=== PATIENT | female | born 1995 | race Hispanic/Latino ===

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

== ENCOUNTER 2017-01-02 17:39 | Outpatient (CLI) | payer OTHER ==
[2017-01-04 22:28] LABS: Chlamydia by PCR Not Detected (NotDetected); GC by PCR Not Detected (NotDetected)
== END 2017-01-02 17:40 | disposition home or self-care (01) ==
LOC: MADLAB 17:39
PROVIDERS: ATTEND Family Medicine
DX: R10.2 Pelvic and perineal pain (principal)
CPT/HCPCS: 87480; 87491; 87510; 87591; 87660

== ENCOUNTER 2017-02-14 22:54 | Emergency (ER) | payer OTHER ==
[2017-02-14] MEDS ORDERED: Albuterol Sulfate 1.25 MG/3 ML NEB ONE (23:21)
[2017-02-14] MEDS ORDERED: HYDROcodone/Acetaminophen 5/325 mg Tablet ONE (23:24)
[2017-02-14] MEDS ORDERED: Benzonatate 100 MG CAP ONE (23:24)
[2017-02-14] MEDS ORDERED: Dexamethasone 4 MG TAB ONE (23:24)
== END 2017-02-14 23:33 | disposition home or self-care (01) ==
LOC: MADERS 22:54
DX: J45.909 Unspecified asthma, uncomplicated (principal); E11.9 Type 2 diabetes mellitus without complications; E03.9 Hypothyroidism, unspecified; F41.9 Anxiety disorder, unspecified; F20.9 Schizophrenia, unspecified; F31.9 Bipolar disorder, unspecified; F17.210 Nicotine dependence, cigarettes, uncomplicated; Z79.899 Other long term (current) drug therapy; Z79.84 Long term (current) use of oral hypoglycemic drugs
CPT/HCPCS: J8540

== ENCOUNTER 2017-02-24 00:18 | Emergency (ER) | payer BC, OTHER ==
[2017-02-24] MEDS ORDERED: Famotidine In NaCl 20 mg/50 ml Premix Bag ONE (00:47)
[2017-02-24] MEDS ORDERED: Ondansetron HCl/PF 4 MG/2 ML Vial ONE (00:47)
[2017-02-24 01:15] LABS: Alcohol 74 mg/dL (Less than 10); Anion Gap 17 mmol/L (10-20); BUN (Urea Nitrogen) 12 mg/dL (8.4-21.0); Calc. Creatinine Clearance 0 mL/min (70-130); Calcium 8.9 mg/dL (7.8-10.44); Carbon Dioxide 21 mmol/L (22-29); Chloride 104 mmol/L (98-107); Estimated GFR-MDRD Greater than 90; Glucose 136 mg/dL (70-105); Potassium 3.3 mmol/L (3.5-5.1); Sodium 139 mmol/L (136-145)
[2017-02-24 01:17] LABS: Hemoglobin 13.5 g/dL (12.0-16.0); Manual Diff?? YES; Mean Corpuscular HGB CONC 33.2 g/dL (32.0-36.0); Mean Corpuscular Hemoglobin 28.3 pg (25.0-35.0); Mean Corpuscular Volume 85.2 fl (77.0-87.0); Mean Platelet Volume 8.8 fL (7.4-10.4); Platelet Count 315 thou/uL (130-400); RBC Distribution Width 13.5 % (11.5-14.5); Red Blood Cell (RBC) Count 4.78 mill/uL (4.00-5.20); White Blood Cell (WBC) Count 18.2 thou/uL (4.8-10.8)
[2017-02-24 01:18] LABS: #Basophils 0.3 thou/uL (0.0-0.2); #Eosinphils 0.4 thou/uL (0.0-0.7); #Monocytes 0.9 thou/uL (0.11-0.59); #Neutrophils 12.9 thou/uL (1.40-6.50); %Basophils 1.5 % (0.0-1.0); %Lymphocytes 20.6 % (28.0-48.0); %Neutrophils 70.9 % (31.0-61.0); Acetaminophen Less than 6.0 mcg/mL (10.0-30.0); Alcohol 72 mg/dL (Less than 10); Band 0 % (5-11); Lymphocytes 28 % (28-48); MDiff Complete? YES; Monocytes 5 % (0-4); Neutrophil 67 % (31-61); Salicylate Less than 8.0 mg/dL (15.0-30.0)
[2017-02-24 01:19] LABS: Anisocytosis SLIGHT = 6-15 cells (100X) (0-5/hpf); Hypochromia SLIGHT = 6-15 cells (100X) (0-5/hpf); PLT Morphology Comment Appears Adequate; Poikilocytosis SLIGHT = 6-15 cells (100X) (0-5/hpf); RBC Morphology ABNORMAL
[2017-02-24 01:21] LABS: CKMB 1.5 ng/mL (0-6.6); Troponin I 0.033 ng/mL (< 0.028)
[2017-02-24 01:40] LABS: Amphetamine Not Detected (NotDetected); Barbiturates Screen Not Detected (NotDetected); Benzodiazepine Screen Not Detected (NotDetected); Cocaine Metabolite Screen Not Detected (NotDetected); Medtox Control Line Valid? VALID (VALID); Methadone Not Detected (NotDetected); Methamphetamine Not Detected (NotDetected); Opiate Screen Not Detected (NotDetected); Oxycodone Screen Not Detected (NotDetected); Phencyclidine (PCP) Not Detected (NotDetected); THC/Cannabinoid Screen Detected (NotDetected); Tricyclic Screen Not Detected (NotDetected)
== END 2017-02-24 02:35 | disposition home or self-care (01) ==
LOC: MADERS 00:18
DX: F10.10 Alcohol abuse, uncomplicated (principal); F19.10 Other psychoactive substance abuse, uncomplicated; J45.909 Unspecified asthma, uncomplicated; E11.9 Type 2 diabetes mellitus without complications; E03.9 Hypothyroidism, unspecified; F41.9 Anxiety disorder, unspecified; F20.9 Schizophrenia, unspecified; F31.9 Bipolar disorder, unspecified; F17.210 Nicotine dependence, cigarettes, uncomplicated; Z79.899 Other long term (current) drug therapy
CPT/HCPCS: 36415; 80048; 80306; 80307; 82553; 84484; 85025; 85379; 93005; 96374; 96375; J2405

== ENCOUNTER 2017-04-19 14:00 | Emergency (ER) | payer BC, OTHER ==
[~2017-04-19 14:00] MED LIST: Iopamidol 370 76% 125 ML VIAL FS ONE
[2017-04-19 15:14] LABS: #Basophils 0.1 thou/uL (0.0-0.2); #Eosinphils 0.2 thou/uL (0.0-0.7); #Lymphocytes 2.2 thou/uL (1.20-3.40); #Monocytes 0.8 thou/uL (0.11-0.59); #Neutrophils 6.7 thou/uL (1.40-6.50); %Basophils 1.2 % (0.0-1.0); %Eosinophils 1.5 % (0.0-10.0); %Lymphocytes 22.1 % (28.0-48.0); %Monocytes 7.8 % (0.0-4.0); %Neutrophils 67.4 % (31.0-61.0); Hemoglobin 13.4 g/dL (12.0-16.0); Mean Corpuscular HGB CONC 32.4 g/dL (32.0-36.0); Mean Corpuscular Hemoglobin 28.4 pg (25.0-35.0); Mean Corpuscular Volume 87.8 fl (77.0-87.0); Mean Platelet Volume 9.2 fL (7.4-10.4); Platelet Count 277 thou/uL (130-400); RBC Distribution Width 15.9 % (11.5-14.5); Red Blood Cell (RBC) Count 4.73 mill/uL (4.00-5.20)
[2017-04-19 15:33] LABS: Anion Gap 15 mmol/L (10-20); BUN (Urea Nitrogen) 11 mg/dL (8.4-21.0); Calc. Creatinine Clearance 0 mL/min (70-130); Calcium 9.3 mg/dL (7.8-10.44); Carbon Dioxide 23 mmol/L (22-29); Chloride 104 mmol/L (98-107); Estimated GFR-MDRD Greater than 90; Glucose 97 mg/dL (70-105); Potassium 3.8 mmol/L (3.5-5.1); Sodium 138 mmol/L (136-145)
[2017-04-19 15:40] LABS: Pregnancy Test - Urine (BHCG) Negative (Negative); Pregu Control Background? CLEAR/WHITE (CLR/WHITE); Pregu Control Bar Appear? YES (CONTROL BAR)
--- NOTE | 2017-04-19 16:43 | CT ---
CT OF NECK SOFT TISSUES WITH AND WITHOUT CONTRAST 04/19/17 CLINICAL HISTORY: Right neck lump. Family history of thyroid cancer. FINDINGS: There is asymmetric enlargement of the right submandibular gland with overlying cellulitis, thickenin g of the right platysma and adenopathy, regionally. There is heterogeneous enhancement of the enlarge d right submandibular gland. There is no drainable abscess. No discrete sialolithiasis. There is no evidence of mass within the aerodigestive tract. There is mild prominence of the lingual tonsils. Thy roid gland is somewhat diminutive in volume, and heterogeneous where visualized, limited in assessmen t. The bilateral parotid glands are grossly unremarkable. Osseous structures are intact. IMPRESSION: Findings consistent with right side sialadenitis involving the right submandibular gland. There is ov erlying cellulitis, associated, likely reactive adenopathy, and reactive thickening of the right plat ysma. There is no drainable abscess. Recommend appropriate clinical management and followup and as ne cessary imaging followup may be obtained. There is no obstructing sialolithiasis or sialodocholithiasis evident. POS: [facility]
[2017-04-19] MEDS ORDERED: Clindamycin 150 MG CAP ONE ×2 (18:30→18:31)
[2017-04-19] MEDS ORDERED: Clindamycin/D5W 900 mg/50 ml Premix Bag ONE (18:38)
== END 2017-04-19 17:50 | disposition home or self-care (01) ==
LOC: MADERS 14:00
DX: K11.20 Sialoadenitis, unspecified (principal); F17.210 Nicotine dependence, cigarettes, uncomplicated; F12.10 Cannabis abuse, uncomplicated; F15.10 Other stimulant abuse, uncomplicated; F14.10 Cocaine abuse, uncomplicated; F31.9 Bipolar disorder, unspecified; J45.909 Unspecified asthma, uncomplicated; E11.9 Type 2 diabetes mellitus without complications; E03.9 Hypothyroidism, unspecified; I25.2 Old myocardial infarction; E34.9 Endocrine disorder, unspecified; Z79.899 Other long term (current) drug therapy
CPT/HCPCS: 70492; 80048; 81025; 84436; 84443; 85025; 96374; J3490

== ENCOUNTER 2017-06-30 23:16 | Emergency (ER) | payer BC, MEDICAID, OTHER ==
[2017-07-01 00:15] LABS: Bilirubin Negative (Negative); Blood, Urine Negative (Negative); Clarity Clear (Clear); Glucose, Urine (Dipstick) Negative (Negative); Leukocyte Negative (Negative); Nitrite Negative (Negative); Protein, Urine (Dipstick) Negative (Neg-Trace); Urobilinogen 0.2 mg/dL (0.2-1.0)
[2017-07-01 00:17] LABS: Pregnancy Test - Urine (BHCG) Negative (Negative); Pregu Control Background? CLEAR/WHITE (CLR/WHITE); Pregu Control Bar Appear? YES (CONTROL BAR)
[2017-07-01 00:38] LABS: #Basophils 0.2 thou/uL (0.0-0.2); #Eosinphils 0.4 thou/uL (0.0-0.7); #Lymphocytes 3.3 thou/uL (1.20-3.40); %Basophils 1.1 % (0.0-1.0); %Eosinophils 2.7 % (0.0-10.0); %Lymphocytes 22.3 % (28.0-48.0); %Monocytes 6.5 % (0.0-4.0); %Neutrophils 67.3 % (31.0-61.0); Hemoglobin 12.1 g/dL (12.0-16.0); Mean Corpuscular HGB CONC 33.6 g/dL (32.0-36.0); Mean Corpuscular Hemoglobin 29.5 pg (25.0-35.0); Mean Corpuscular Volume 87.6 fl (77.0-87.0); Mean Platelet Volume 9.7 fL (7.4-10.4); Platelet Count 279 thou/uL (130-400); RBC Distribution Width 13.3 % (11.5-14.5); Red Blood Cell (RBC) Count 4.11 mill/uL (4.00-5.20); White Blood Cell (WBC) Count 14.9 thou/uL (4.8-10.8)
[2017-07-01 00:53] LABS: Anion Gap 16 mmol/L (10-20); BUN (Urea Nitrogen) 11 mg/dL (8.4-21.0); Calc. Creatinine Clearance 0 mL/min (70-130); Carbon Dioxide 21 mmol/L (22-29); Chloride 104 mmol/L (98-107); Estimated GFR-MDRD Greater than 90; Glucose 108 mg/dL (70-105); Magnesium 1.8 mg/dL (1.7-2.2); Sodium 137 mmol/L (136-145)
--- NOTE | 2017-07-01 07:34 | RAD ---
CHEST 1 VIEW: COMPARISON: 06/20/17. HISTORY: Dyspnea. FINDINGS: Normal cardiac silhouette. Pulmonary vessels and hilum are normal. Costophrenic angles are clear. No masses or consolidation. No pneumothorax or osseous abnormalities. IMPRESSION: No acute cardiopulmonary process. POS: [facility]
== END 2017-07-01 01:20 | disposition home or self-care (01) ==
LOC: MADERS 23:16
DX: R06.02 Shortness of breath (principal); R53.81 Other malaise; I10 Essential (primary) hypertension; E11.9 Type 2 diabetes mellitus without complications; E03.9 Hypothyroidism, unspecified; F41.9 Anxiety disorder, unspecified; F31.9 Bipolar disorder, unspecified; Z79.899 Other long term (current) drug therapy
CPT/HCPCS: 36415; 71045; 80048; 81003; 81025; 83735; 84443; 85025

== ENCOUNTER 2017-07-27 23:29 | Emergency (ER) | payer OTHER ==
[2017-07-28 00:04] LABS: Bilirubin Negative (Negative); Blood, Urine Negative (Negative); Clarity Clear (Clear); Glucose, Urine (Dipstick) Negative (Negative); Leukocyte Negative (Negative); Nitrite Negative (Negative); Protein, Urine (Dipstick) Trace mg/dL (Neg-Trace); Urobilinogen 0.2 mg/dL (0.2-1.0)
[2017-07-28 00:06] LABS: Pregnancy Test - Urine (BHCG) Negative (Negative); Pregu Control Background? CLEAR/WHITE (CLR/WHITE); Pregu Control Bar Appear? YES (CONTROL BAR)
[2017-07-28] MEDS ORDERED: HYDROcodone/Acetaminophen 5/325 mg Tablet ONE (00:59)
[2017-07-28] MEDS ORDERED: Benzonatate 100 MG CAP ONE (01:00)
== END 2017-07-28 01:17 | disposition short-term general hospital (02) ==
LOC: MADERS 23:29
DX: M54.5 Low back pain (principal); I10 Essential (primary) hypertension; J45.909 Unspecified asthma, uncomplicated; E11.9 Type 2 diabetes mellitus without complications; E03.9 Hypothyroidism, unspecified; I25.2 Old myocardial infarction; F41.9 Anxiety disorder, unspecified; F20.9 Schizophrenia, unspecified; F31.9 Bipolar disorder, unspecified; Z79.899 Other long term (current) drug therapy; Z79.51 Long term (current) use of inhaled steroids
CPT/HCPCS: 81003; 81025; 99284

== ENCOUNTER 2017-09-03 10:03 | Outpatient (CLI) | payer BC, OTHER ==
--- NOTE | 2017-09-03 11:34 | ULT ---
BILATERAL RENAL ULTRASOUND: Date: 09/03/17 COMPARISON: None. HISTORY: Urinary retention along with urinary incontinence. TECHNIQUE: Multiplanar Villatoro scale sonographic imaging of the kidneys and urinary bladder obtained. FINDINGS: The right kidney measures 12.7 x 4.4 x 6.0 cm and demonstrates no stone, hydronephrosis, or mass lesi on. The left kidney measures 10.7 x 4.7 x 5.1 cm and demonstrates no stone, hydronephrosis, or mass lesio n. Urinary bladder is grossly unremarkable, with pre-void volume of approximately 16 mL and post-void vo lume of 15 mL. IMPRESSION: Unremarkable renal ultrasound. Pre-void urinary bladder and post-void urinary bladder volume is essen tially the same, in the 15-16 mL range. A more accurate representation for post-void residua could be obtained if the patient's urinary bladder was full on pre-void imaging. POS: [facility]
== END 2017-09-03 10:04 | disposition home or self-care (01) ==
LOC: MADULT 10:03
PROVIDERS: ATTEND Family Medicine
DX: R32 Unspecified urinary incontinence (principal); R39.11 Hesitancy of micturition
CPT/HCPCS: 76770

== ENCOUNTER 2018-02-26 15:27 | Emergency (ER) | payer BC, OTHER ==
[2018-02-26] MEDS ORDERED: predniSONE 20 MG TAB ONE (15:52)
== END 2018-02-26 18:00 | disposition home or self-care (01) ==
LOC: MADERS 15:27
DX: J45.901 Unspecified asthma with (acute) exacerbation (principal); I10 Essential (primary) hypertension; E11.9 Type 2 diabetes mellitus without complications; E03.9 Hypothyroidism, unspecified; F41.9 Anxiety disorder, unspecified; F31.9 Bipolar disorder, unspecified; F17.210 Nicotine dependence, cigarettes, uncomplicated
CPT/HCPCS: 94640; J7506; J7620

== ENCOUNTER 2018-07-29 23:15 | Emergency (ER) | payer BC, MEDICAID ==
[2018-07-29] MEDS ORDERED: Benzonatate 100 MG CAP ONE (23:42)
[2018-07-29] MEDS ORDERED: HYDROcodone/Acetaminophen 10/325 mg Tablet ONE (23:42)
--- NOTE | 2018-07-29 23:49 | RAD ---
EXAM: CHEST TWO VIEWS: 07/29/18 HISTORY: Cough. COMPARISON: 01/12/14. FINDINGS: There is some very subtle ground glass opacity changes in the left perihilar region. This could repre sent some very minimal or early infiltrate/pneumonia. Heart size is within normal limits. No pleural effusion. IMPRESSION: Probable minimal/early left perihilar pneumonia. POS: [facility]
[2018-07-29] MEDS ORDERED: cefTRIAXone\\ROCEPHIN 1 GM VIAL ONE (23:53)
[2018-07-29] MEDS ORDERED: Dexamethasone 4 MG TAB ONE (23:53)
[2018-07-29] MEDS ORDERED: Amoxicillin/Potassium Clav 875 MG TAB ONE (23:54)
== END 2018-07-30 00:26 | disposition home or self-care (01) ==
LOC: MADERS 23:15
DX: J18.9 Pneumonia, unspecified organism (principal); J45.901 Unspecified asthma with (acute) exacerbation; E11.9 Type 2 diabetes mellitus without complications; I10 Essential (primary) hypertension; E03.9 Hypothyroidism, unspecified; F41.9 Anxiety disorder, unspecified; F20.9 Schizophrenia, unspecified; F31.9 Bipolar disorder, unspecified; F17.210 Nicotine dependence, cigarettes, uncomplicated; Z79.899 Other long term (current) drug therapy; Z79.51 Long term (current) use of inhaled steroids
CPT/HCPCS: 71046; 96372; J0696; J7620; J8540

== ENCOUNTER 2018-09-14 21:43 | Emergency (ER) | payer BC, OTHER ==
[2018-09-14] MEDS ORDERED: Ibuprofen 800 MG TAB ONE (22:37)
== END 2018-09-14 23:45 | disposition home or self-care (01) ==
LOC: MADERS 21:43
DX: S10.0XXA Contusion of throat, initial encounter (principal); E11.9 Type 2 diabetes mellitus without complications; I10 Essential (primary) hypertension; J45.909 Unspecified asthma, uncomplicated; E03.9 Hypothyroidism, unspecified; F41.9 Anxiety disorder, unspecified; F20.9 Schizophrenia, unspecified; F31.9 Bipolar disorder, unspecified; F17.210 Nicotine dependence, cigarettes, uncomplicated; Z79.899 Other long term (current) drug therapy; Z79.51 Long term (current) use of inhaled steroids; Y07.9 Unspecified perpetrator of maltreatment and neglect
CPT/HCPCS: 99284

== ENCOUNTER 2020-04-12 05:05 | Emergency (ER) | payer OTHER ==
[2020-04-12 05:47] LABS: #Basophils 0.2 thou/uL (0.0-0.2); #Eosinphils 0.2 thou/uL (0.0-0.7); #Lymphocytes 2.7 thou/uL (1.20-3.40); #Monocytes 0.7 thou/uL (0.11-0.59); #Neutrophils 7.6 thou/uL (1.40-6.50); %Basophils 1.8 % (0.0-1.0); %Eosinophils 1.9 % (0.0-10.0); %Lymphocytes 23.3 % (21.0-51.0); %Monocytes 6.4 % (0.0-10.0); %Neutrophils 66.7 % (42.0-75.0); Hemoglobin 12.8 g/dL (12.0-16.0); Mean Corpuscular HGB CONC 31.8 g/dL (32.0-36.0); Mean Corpuscular Hemoglobin 28.9 pg (27.0-31.0); Mean Corpuscular Volume 90.9 fL (78.0-98.0); Platelet Count 217 thou/uL (130-400); RBC Distribution Width 13.8 % (11.5-14.5); Red Blood Cell (RBC) Count 4.45 mill/uL (4.20-5.40); White Blood Cell (WBC) Count 11.4 thou/uL (4.8-10.8)
[2020-04-12 05:56] LABS: Bilirubin Negative (Negative); Blood, Urine Trace (Negative); Clarity Clear (Clear); Glucose, Urine (Dipstick) Negative (Negative); Ketone, Urine Negative (Negative); Leukocyte Negative (Negative); Nitrite Negative (Negative); Protein, Urine (Dipstick) Negative (Neg-Trace); Specific Gravity, Urine 1.025 (1.005-1.030); Urobilinogen 0.2 mg/dL (Less than 2)
[2020-04-12 06:04] LABS: ALT (SGPT) 23 U/L (8-55); AST (SGOT) 15 U/L (5-34); Albumin 3.7 g/dL (3.5-5.0); Alkaline Phosphatase 92 U/L (40-110); Anion Gap 15 mmol/L (10-20); BUN (Urea Nitrogen) 8 mg/dL (7.0-18.7); Bacteria/HPF Rare-Few HPF (None Seen); Bilirubin, Total 0.2 mg/dL (0.2-1.2); CK (CPK) 142 U/L (29-168); Calc. Creatinine Clearance 0 mL/min (70-130); Calcium 8.2 mg/dL (7.8-10.44); Carbon Dioxide 23 mmol/L (22-29); Chloride 104 mmol/L (98-107); Globulin 3.1 g/dL (2.4-3.5); Glucose 143 mg/dL (70-105); Potassium 3.7 mmol/L (3.5-5.1); Protein, Total 6.8 g/dL (6.0-8.3); RBC/HPF 0-3 HPF (0-3); Sodium 138 mmol/L (136-145); Squamous Epithelial 0-3 HPF (0-3); WBC/HPF 0-3 HPF (0-3)
[2020-04-12 06:05] LABS: Amphetamine Not Detected (NotDetected); Barbiturates Screen Not Detected (NotDetected); Benzodiazepine Screen Not Detected (NotDetected); Cocaine Metabolite Screen Not Detected (NotDetected); Medtox Control Line Valid? VALID (VALID); Methadone Not Detected (NotDetected); Methamphetamine Not Detected (NotDetected); Opiate Screen Not Detected (NotDetected); Oxycodone Screen Not Detected (NotDetected); Phencyclidine (PCP) Not Detected (NotDetected); THC/Cannabinoid Screen Detected (NotDetected); Tricyclic Screen Not Detected (NotDetected)
[2020-04-12 06:15] LABS: CKMB 1.7 ng/mL (0-6.6)
[2020-04-12] MEDS ORDERED: Aspirin Chewable 81 MG TAB ONE ×2 (06:55→06:56)
[2020-04-12] MEDS ORDERED: Nitroglycerin 0.4 MG TAB 1 EACH ONE (06:55)
[2020-04-12] MEDS ORDERED: Metoprolol Tartrate 50 MG TAB ONE (06:57)
[2020-04-12] MEDS ORDERED: Acetaminophen 650 MG Suppository ONE (07:12)
--- NOTE | 2020-04-12 07:48 | RAD ---
Chest one view HISTORY: Chest pain. COMPARISON: 07/29/2018. FINDINGS: Cardiac silhouette is magnified and enlarged. Pulmonary vasculature are unremarkable. Mediastinum is midline. No lobar consolidation or evidence of pneumothorax. Extensive overlying artif act. IMPRESSION : Cardiomegaly stable. No acute abnormalities are demonstrated.
[2020-04-12 18:08] LABS: SARS-CoV-2 MS2 Positive; SARS-CoV-2 N Gene Negative; SARS-CoV-2 S Gene Negative; SARS-CoV-2 by NAA Not Detected (NotDetected); SARS-CoV-2 orf1ab Negative
== END 2020-04-12 07:53 | disposition home or self-care (01) ==
LOC: MADERS 05:05
DX: B34.9 Viral infection, unspecified (principal); F12.10 Cannabis abuse, uncomplicated; I10 Essential (primary) hypertension; R07.2 Precordial pain; Z20.828 Contact with and (suspected) exposure to other viral communicable diseases; E11.9 Type 2 diabetes mellitus without complications; E03.9 Hypothyroidism, unspecified; F17.210 Nicotine dependence, cigarettes, uncomplicated; Z79.899 Other long term (current) drug therapy
CPT/HCPCS: 71045; 80053; 80306; 81003; 81015; 82550; 82553; 83605; 83880; 84484; 85025; 85379; 87635; 93005; 94760; 99406; U0003

== ENCOUNTER 2022-03-14 16:30 | Emergency (ER) | payer OTHER ==
[2022-03-14 18:20] LABS: ALT (SGPT) 21 U/L (8-55); AST (SGOT) 25 U/L (5-34); Albumin 3.9 g/dL (3.5-5.0); Alkaline Phosphatase 91 U/L (40-110); Anion Gap 15 mmol/L (10-20); BUN (Urea Nitrogen) 11 mg/dL (7.0-18.7); Bilirubin, Total 0.2 mg/dL (0.2-1.2); Calc. Creatinine Clearance 0 mL/min (70-130); Calcium 9.4 mg/dL (7.8-10.44); Carbon Dioxide 22 mmol/L (22-29); Chloride 106 mmol/L (98-107); Estimated GFR 110; Globulin 4.2 g/dL (2.4-3.5); Glucose 99 mg/dL (70-105); Potassium 3.7 mmol/L (3.5-5.1); Protein, Total 8.1 g/dL (6.0-8.3); Sodium 139 mmol/L (136-145)
[2022-03-14] MEDS ORDERED: Albuterol Sulfate 2.5 mg/0.5 ml Neb ONE (18:21)
[2022-03-14] MEDS ORDERED: Dexamethasone 4 MG TAB ONE (18:21)
[2022-03-14 18:27] LABS: Hemoglobin 14.6 g/dL (12.0-16.0); Mean Corpuscular HGB CONC 32.6 g/dL (32.0-36.0); Mean Corpuscular Hemoglobin 30.1 pg (27.0-31.0); Mean Corpuscular Volume 92.3 fl (78.0-98.0); Mean Platelet Volume 9.4 fL (7.4-10.4); Platelet Count 208 10x3/uL (130-400); RBC Distribution Width 11.8 % (11.5-14.5); Red Blood Cell (RBC) Count 4.84 mill/uL (4.20-5.40); White Blood Cell (WBC) Count 6.9 10x3/uL (4.8-10.8)
[2022-03-14 18:28] LABS: Band 5 % (5-11); Eosinophils 1 % (0-10); Lymphocytes 10 % (21-51); MDiff Complete? YES; Monocytes 6 % (0-10); Neutrophil 64 % (42-75); Platelet Morphology Comment Appears Adequate; RBC Morphology Normal; Reactive Lymphocytes 14 % (0-10)
[2022-03-14] MEDS ORDERED: Acetaminophen 500 MG TAB ONE (18:34)
[2022-03-14 18:38] LABS: CKMB 1.1 ng/mL (0-6.6)
== END 2022-03-14 22:01 | disposition home or self-care (01) ==
LOC: MADERS 16:30
DX: J11.1 Influenza due to unidentified influenza virus with other respiratory manifestations (principal); J45.909 Unspecified asthma, uncomplicated; I10 Essential (primary) hypertension; E03.9 Hypothyroidism, unspecified; Z79.899 Other long term (current) drug therapy; Z20.822 Contact with and (suspected) exposure to COVID-19; F17.210 Nicotine dependence, cigarettes, uncomplicated
CPT/HCPCS: 71045; 71275; 80053; 82553; 84443; 84484; 85025; 85379; 87804; 93005; J7611; J7620; J8540; Q9967; U0003; U0005